=== PATIENT | male | born 2005 | race Caucasian/White ===

== ENCOUNTER 2025-05-09 22:30 | Emergency (ER) | payer BC ==
[2025-05-09 22:40] VITALS: O2SAT 98
--- NOTE | 2025-05-09 22:51 | ERPHSYRPT ---
- History of Present Illness Time Seen by Provider: 05/09/25 22:33 Source: patient Exam Limitations: no limitations Patient Subjective Stated Complaint: pt reports he got his right middle finger stuck in a square cask maker at noon today. pt denies pain unless he is moving his finger. pt denies any other injury or accident. pt reports tetanus is UTD. Triage Nursing Assessment: pt is aox3, pupils perrl, afebrile, resps easy and non labored, cap refill < 3 seconds, radial pulses strong and equal, pt skin pink warm dry. pt has an approximate 1.5 cm laceration/flap on his dorsal right middle finger. skin is well approximated. no bleeding or drainage at this time. Physician History: 20-year-old male presents to the emergency room with a laceration to his right middle finger patient reports he was handling hay And injured himself patient denies any other injuries reports his tetanus is up-to-date now in ED for further eval Occurred: just prior to arrival Method of Injury: unknown Quality: constant Extremities Pain Location: 3rd finger: right Modifying Factors: Improves With: nothing Associated Symptoms: none Allergies/Adverse Reactions: No Known Drug Allergies Allergy (Verified 05/09/25 22:40) Hx Tetanus, Diphtheria Vaccination/Date Given: Yes Hx Influenza Vaccination/Date Given: Yes Hx Pneumococcal Vaccination/Date Given: No Immunizations Up to Date: Yes Travel Risk - International Travel Have you traveled outside of the country in past 3 weeks: No - Emerging Infectious Disease Are you exhibiting symptoms associated with any current EIDs: No - Review of Systems Constitutional: No Fever, No Chills Eyes: No Symptoms Ears, Nose, & Throat: No Symptoms Respiratory: No Cough, No Dyspnea Cardiac: No Chest Pain, No Edema, No Syncope Abdominal/Gastrointestinal: No Abdominal Pain, No Nausea, No Vomiting, No Diarrhea Genitourinary Symptoms: No Dysuria Musculoskeletal: No Back Pain, No Neck Pain Skin: No Rash Neurological: No Dizziness, No Focal Weakness, No Sensory Changes Psychological: No Symptoms Endocrine: No Symptoms All Other Systems: Reviewed and Negative - Past Medical History Pertinent Past Medical History: Yes Neurological History: No Pertinent History ENT History: No Pertinent History Cardiac History: No Pertinent History Respiratory History: No Pertinent History Endocrine Medical History: No Pertinent History Musculoskeletal History: No Pertinent History GI Medical History: Other History: No Pertinent History Psycho-Social History: No Pertinent History Male Reproductive Disorders: No Pertinent History Other Medical History: primary schlerosing colangitis - Past Surgical History Past Surgical History: Yes Cardiac: Other Other Surgical History: liver biopsy, colonscopy, heart surgery as baby - Social History Smoking Status: Never smoker Exposure to second hand smoke: No Drug Use: none - Social Determinants of Health Will the patient participate in the screening: Yes Do you worry about a steady place to live?: No Do you have any problems with any of the following?: No known problems In the past 12 months,have you had to go without utilities?: No Transportation Issues: No Has anyone in your support network made you feel unsafe?: No Have you or anyone in your house had to go w/o enough food: No - Nursing Vital Signs Nursing Vital Signs: Initial Vital Signs Pulse Rate 88 05/09/25 22:33 Respiratory Rate 12 05/09/25 22:33 Blood Pressure 124/69 05/09/25 22:33 O2 Sat by Pulse Oximetry 98 05/09/25 22:33 Pain Scale Pain Intensity 0 - Physical Exam General Appearance: alert Eyes, Ears, Nose, Throat Exam: moist mucous membranes Neck Exam: non-tender, supple Cardiovascular/Respiratory Exam: chest non-tender, normal breath sounds, regular rate/rhythm, no respiratory distress Abdominal Exam: non-tender, No guarding Back Exam: normal inspection, No vertebral tenderness Hand Exam: laceration (1 cm right middle finger) Neuro/Tendon Exam: normal sensation, normal motor functions Mental Status Exam: alert, oriented x 3, cooperative Skin Exam: normal color, warm, dry SpO2: 98 Procedures - Laceration/Wound Repair Right Dorsal Finger Time of Procedure: 22:50 Wound Location: Right Wound Length (cm): 1 Wound's Depth, Shape: superficial Wound Explored: clean Irrigated: Yes Hibiclens Prep: No Anesthesia: local, 1% Lidocaine Volume Anesthetic (ccs): 1 Wound Debrided: minimal Wound Repaired With: sutures Suture Size/Type: 6-0 Number of Sutures: 2 Layer Closure?: No Sterile Dressing Applied?: Yes Splint Applied?: Yes Type of Splint Applied: finger Sling Applied?: No - Departure Departure Disposition: Home Clinical Impression: Finger laceration Qualifiers: Encounter type: initial encounter Finger: unspecified finger Damage to nail status: without damage Foreign body presence: without foreign body Laterality: right Qualified Code(s): S61.219A - Laceration without foreign body of unspecified finger without damage to nail, initial encounter Condition: Stable Critical Care Time: No Referrals: VALERIE PINA NP [Primary Care Provider, UNKNOWN] - Follow up/PCP as directed Instructions: Laceration Repair With Stitches (DC), Wound Care (DC)
[2025-05-09 23:30] VITALS: BP 109/61; PULSE 78; RESP 17
== END 2025-05-09 23:35 | disposition home or self-care (01) ==
LOC: ED 22:30
DX: S61.212A Laceration without foreign body of right middle finger without damage to nail, initial encounter (principal); W30.89XA Contact with other specified agricultural machinery, initial encounter